=== PATIENT | male | born 1965 | race Caucasian/White ===

== ENCOUNTER 2019-07-07 15:10 | Emergency (ER) | payer OTHER, SELFPAY ==
[2019-07-07 15:11] VITALS: BP 154/105; PULSE 82; RESP 17; TEMP 36.8; O2SAT 98; BMI 26.4
--- NOTE | 2019-07-07 15:30 | ED.DCSUM_ITS ---
- ER Visit Summary Date of Service: 07/07/19 Chief Complaint: Laceration History of Present Illness: The patient is a 53 M who is right-hand dominant. He smashed his left middle finger between pieces of wood just prior to arrival. Sustained a laceration. Unsure of his tetanus status. Physical Examination: 2.5 cm laceration on his palmar side of his distal phalanx of his left middle finger. Nailbed intact. Neurovascular intact. Good range of motion. Test Results: X-rays pending Emergency Department Course and Treatment: Tetanus updated. Digital block was performed using lidocaine without epinephrine. He tolerated this well. Wound was irrigated and explored under good lighting and hemostasis. Closed with simple interrupted sutures. Follow-up with primary care for suture removal in about 10 days. Return sooner for any signs of infection. Treatment Plan: As above Disposition: Discharge Impression: 1. Left middle finger laceration 2.5 cm This note was generated with [employer] dictation software. It may contain incorrect words, spelling, and punctuation that were not noted in review of the chart prior to signing ED Disposition - Plan for ED Patient: Referrals: Care Physician,No Primary [Primary Care Provider] -
--- NOTE | 2019-07-07 15:32 | ED.DEP ---
ED Disposition - Plan for ED Patient: Instructions: LACERATION, Hand Prescriptions: Cephalexin [Keflex] 500 mg PO Q6 3 Days #12 cap Prescription Printed Referrals: Nat Jones [NON-STAFF] - 10 Day for suture removal
--- NOTE | 2019-07-07 15:36 | RAD_ITS ---
STUDY: X-RAY - LEFT HAND, ATTENTION THIRD FINGER REASON FOR EXAM: Male, 53 years old. Laceration distal finger, anterior TECHNIQUE: 3 view(s) of the finger were obtained. COMPARISON: None. FINDINGS: Normal metacarpal head. Normal metacarpophalangeal joint. Normal proximal phalanx. Normal middle phalanx. Normal distal phalanx. Normal proximal interphalangeal joint. Normal distal interphalangeal joint. There are small punctate densities along the radial side digital soft tissues at the PIP joint level. RAD/Finger(s) Min 2 Views IMPRESSION: No demonstrated fracture. Punctate foreign bodies of the distal third digit soft tissues. Electronically Signed: Jesús Wright MD (Brooks) at 15:54 EST , Service support ,
[2019-07-07] MEDS: Diphth,Pertuss(Acell),Tet Vac 0.5 ML Vial IM (15:50)
== END 2019-07-07 16:30 | disposition home or self-care (01) ==
LOC: ED 15:43
PROVIDERS: Emergency Provider Emergency Medicine
DX: S61.213A Laceration without foreign body of left middle finger without damage to nail, initial encounter (principal); W23.0XXA Caught, crushed, jammed, or pinched between moving objects, initial encounter; Y93.9 Activity, unspecified; Y92.9 Unspecified place or not applicable
CPT/HCPCS: 12001; 73140; 90471; 90715; 99283

== ENCOUNTER 2025-01-14 15:12 | Emergency (ER) | payer OTHER, SELFPAY ==
[2025-01-14 15:13] VITALS: BP 135/89; PULSE 59; RESP 18; TEMP 36.6; O2SAT 98; BMI 25.1
--- NOTE | 2025-01-14 15:20 | RAD_ITS ---
PROCEDURE: WRIST MIN 3 VIEWS; HAND MIN 3 VIEWS 01/14/2025 REASON FOR EXAM: INJURY TECHNIQUE: WRIST MIN 3 VIEWS; HAND MIN 3 VIEWS COMPARISON: None. FINDINGS: No acute fracture or dislocation. Alignment is anatomic. Preserved joint spaces. Mild soft tissue swelling and possible laceration injury at the dorsal aspect of the hand. No radiopaque foreign body. RAD/Wrist min 3 Views IMPRESSION: No acute fracture or dislocation. Reading Location: [id number]
--- NOTE | 2025-01-14 15:20 | RAD_ITS ---
PROCEDURE: WRIST MIN 3 VIEWS; HAND MIN 3 VIEWS 01/14/2025 REASON FOR EXAM: INJURY TECHNIQUE: WRIST MIN 3 VIEWS; HAND MIN 3 VIEWS COMPARISON: None. FINDINGS: No acute fracture or dislocation. Alignment is anatomic. Preserved joint spaces. Mild soft tissue swelling and possible laceration injury at the dorsal aspect of the hand. No radiopaque foreign body. RAD/Hand Min 3 Views IMPRESSION: No acute fracture or dislocation. Reading Location: [id number]
--- NOTE | 2025-01-14 15:35 | EDS_ITS ---
HPI History of Present Illness Chief Complaint: Upper Extremity Injury Detail of Chief Complaint: Laceration dorsum of right hand and unable to extend right long finger Informant: patient Occured/Mechanism Mechanism/Context: Yes blunt trauma Comment: Cut on a piece of sheet metal Onset/Context/Timing Onset: Today and Hours Context: Sudden Onset Timing: Continuous Quality of Pain: - (Presently has no pain) Location: Dorsum of the right hand Current Severity: Gone Maximum Severity: Moderate Worsened by: Initial injury Relieved by: Nothing, not applicable Associated Symptoms Associated Symptoms: Positive for Loss of Funtion (Unable to extend right long finger); Negative for Parasthesia or Weakness Narrative Narrative: Patient is a 59-year-old [id number] male. He presents with flap laceration dorsum of the right hand. His right long finger is in a flexed pos ition. He denies paresthesia, anesthesia Medicus. Tetanus is not up-to-date. He has no allergies to antibiotics. He has no other complaints. Prior similar symptoms: No Recent Illness/Hospitalization: No PFSH PFSH Medical History no medical history no medical history Home Medications ?Medication ?Instructions ?Recorded ?Last Taken ?Type cephalexin 500 mg capsule 500 mg PO 3XD #14 CAPSULES 0 01/14/25 Unknown Rx Allergy/AdvReac Type Severity Reaction Status Date / Time No Known Allergies Allergy Verified 01/14/25 15:15 Family History no significant family his Surgical History no surgical history Social History (Updated 01/14/25 @ 15:[address] Ethan Hernandez MD) household members: spouse Smoking Status: Heavy Smoker (>10/day) ROS [facility] ED Musculoskeletal Musculoskeletal: Reports other Details: Per HPI narrative Integumentary Reports other Details: Per HPI narrative Neurologic Neurologic: Denies paresthesias or weakness Hematologic/Lymphatic Hematologic/Lymphatic: Denies easy bleeding or easy bruising EXAM Physical Exam Const Vital Signs: 01/14/25 15:13 Temperature 98 F Temperature Source Oral Pulse Rate 59 L Respiratory Rate 18 Blood Pressure 135/89 H Blood Pressure Mean 104 Pulse Ox 98 Oxygen Delivery Method Room Air Positive well nourished and well developed Constitutional Narrative: Vital signs reveal slight elevation in blood pressure. General Appearance ED: well developed and NAD HEENT normocephalic and atraumatic Eyes PERRL and EOMs intact bilaterally Resp normal respiratory effort Cardio regular rate and regular rhythm Extremity Negative for normal to inspection Extremity Narrative: Patient has a splinterlike irregular margined flap type laceration dorsum of the right hand. The extensor indices, the extensor minimizer and extensor tendon to the ring finger are intact. The extensor tendon to the long finger is not. He is in the flexed position. He has no movement when asked to extend. 2 point discrimination is normal. Capillary refill is normal. There is no subungual hematoma noted of the thumb or fingers. Neuro oriented x3, CN's II-XII intact bilaterally, moves all extremities, No no focal motor deficits and no sensory deficits noted Sensorium / Orientation: alert Psych mental status grossly normal Skin Skin Narrative: Documented under the extremity portion of the physical exam. Lesions: no lesions Rashes: no rashes Trauma: Negative for no lacerations or abrasions MDM MDM MDM Narrative Medical decision making narrative: Patient presents with laceration dorsum of right hand. The extensor commonness tendon to his right long finger has been lacerated based on exam. X-rays were obtained per nurse protocol. There is no evidence of foreign body or fracture. Patient was informed if ICD to when is I will suture if possible otherwise we will refer to hand for repair this coming week. He has no antibiotic allergies. Radiography Chest X-Ray - ED: Read by ED Physician (4 view x-ray of the hand was independently turbid by me as negative there is no fracture, subluxation dislocation. There is no foreign body.) and - (Three-view x-ray of the wrist was dependently reviewed interpreted by me as negative. There is no fracture, subluxation dislocation. There is no malalignment of the carpal bones. There is no volar fat pad noted. There is some calcification of the extensor pollicis brevis noted on the lateral. 1) Procedures Other Procedures Procedure(s): Total length of laceration 6 cm. It is a flap. The skin was anesthetized with 1% lidocaine without epinephrine by local infiltration. The wound was irrigated with 250 cc of normal saline. The extensor commonness tendon to the left long finger is completely lacerated. There is also lacerations to what appears to be 2 intratendinous connections. Patient was made aware that this is more complex than I feel comfortable repairing. He was referred to hand surgeon, Dr. Rasta Balderrama, patient was placed on cephalexin. The skin was closed using 5-0 Ethilon. Simple interrupted sutures were placed to approximate the multiple edges. Patient was told why he did not have a cosmetic closure. Will have nurse address and will have nurse placed patient in a aluminum splint so his finger is in position of function. Discharge Plan Triage Chief Complaint: Upper Extremity Injury ED Provider: Ethan Hernandez Dx/Rx/DC Orders Clinical Impression: Laceration of right hand involving extensor tendon, Elevated blood-pressure reading without diagnosis of hypertension Instructions: ED Laceration, Hand: All Closures Prescriptions: New cephalexin 500 mg capsule 500 mg PO 3XD Qty: 14 0RF Primary Care Provider: Care Physician,No Primary Referrals: Rasta Balderrama MD [Med Staff - Active Staff] - As soon as possible Care Physician,No Primary [Primary Care Provider] - Activity Restrictions/Additional Instructions: 1. Keep your wound clean and dry. 2. You may change the tape on the splint every 2 days. 3. Take antibiotics until gone. 4. Contact Dr. Balderrama's office to be seen on Friday or Friday. 5. There is any concern that your wound is infected return to the emergency department. Print Language: Slovak Disposition Disposition: Home, Self Care
[2025-01-14] MEDS: Lidocaine 1% (20 ml mdv) 20 ML Vial INFILT (15:58)
[2025-01-14 16:52] VITALS: BP 135/89; PULSE 59; RESP 14; TEMP 36.6; O2SAT 98
== END 2025-01-14 17:25 | disposition home or self-care (01) ==
PROVIDERS: Emergency Provider Emergency Medicine; Referring Provider Emergency Medicine; Visit Provider Emergency Medicine
DX: S66.322A Laceration of extensor muscle, fascia and tendon of right middle finger at wrist and hand level, initial encounter (principal); W26.8XXA Contact with other sharp object(s), not elsewhere classified, initial encounter; R03.0 Elevated blood-pressure reading, without diagnosis of hypertension; F17.200 Nicotine dependence, unspecified, uncomplicated; Z23 Encounter for immunization
CPT/HCPCS: 12002; 73110; 73130; 90715; 99283

== ENCOUNTER 2025-01-18 07:25 | Day surgery (SDC) | payer OTHER, SELFPAY ==
[2025-01-18] VITALS (9 sets, daily range): BP systolic 125–165; BP diastolic 86–106; PULSE 74–82; RESP 16–20; TEMP 36.1–37; O2SAT 96–99; BMI 25.4
[2025-01-18] MEDS: Lactated Ringers 1,000 ML 15 ML IV (07:58)
--- NOTE | 2025-01-18 08:25 | HP.PCM.SX_ITS ---
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 The injury occurred when the patient's hand was caught on a sharp edge of a sheet metal frame, resulting in a deep cut. The patient reports no prior injuries to the hand and denies any previous similar incidents. The injury occurred on Friday, 14 January 2025. The patient has been evaluated by Dr. Hernandez, who noted potential tendon damage and recommended specialist consultation for further management. The patient reports difficulty with hand movement, specifically with extension, and has been advised to undergo surgical repair. The patient has a history of cigarette smoking, consuming approximately one pack per day, which may impact healing and recovery. Discussed smoking cessation ROS: - Neurological: Denies previous hand injuries or numbness - Musculoskeletal: Reports difficulty with hand extension Attestation: Documentation on this patient encounter was supported using ambient scribe technology/ voice AI technology. The patient consented to recording for the pur pose of documenting the encounter. Provider reviewed content of the generated note prior to signature. Current Encounter (DATE OF SURGERY H&P UPDATE): I saw and examined the patient this morning in pre-operative holding. We discussed risks and benefits of today's surgery and they would like to proceed. NO CHANGE in health history since last seen and evaluated. Ready to proceed with surgery. PFSH Medical History Wears glasses Alcohol use Arthritis Smoker Home Medications ?Medication ?Instructions ?Recorded ?Last Taken ?Type cephalexin 500 mg capsule 500 mg PO 3XD #14 CAPSULES 0 01/14/25 Unknown Rx Allergy/AdvReac Type Severity Reaction Status Date / Time No Known Allergies Allergy Verified 01/18/25 07:54 Surgical History Hx of surgical procedure History of vasectomy Social History household members: spouse Smoking Status: Heavy Smoker (>10/day) Vital Signs Vital Signs Vital Signs: 01/18/25 07:55 01/18/25 07:55 Temperature 98.6 F Temperature Source Temporal Pulse Rate 74 Respiratory Rate 16 Respiratory Pattern Normal Blood Pressure 165/106 H Blood Pressure Mean 125 Blood Pressure Source Monitor Blood Pressure Position Sitting Blood Pressure Location Left Arm Pulse Ox 99 Oxygen Delivery Method Room Air Weight Weight: 171 lb 15.369 oz Body Mass Index (BMI) 25.4 Physical Exam Narrative Right Upper Extremity Inspection: Full-thickness laceration status post repair on the right dorsal hand with a distally based flap of tissue that appears to be viable for the most part. There is extensor lag on the right long finger Palpation: Tenderness noted around the laceration site. Patient has a palmaris Motor: Able to bend and extend all MP, PIP, and DIP joints, except for difficulty in extending right long finger from a neutral position due to the injury. Sensory: Intact to light touch on the radial and ulnar borders. The patient reports no numbness. Vascular: Finger tips are warm and well perfused with greater than 2 second capillary refill. Assessment & Plan Assessment/Plan (1) Laceration of right hand involving extensor tendon: PLAN: Assessment and Plan The patient is a 59-year-old male with a history of cigarette smoking presenting with a hand laceration sustained during work activities. The laceration is associated with potential tendon injury, as noted by Dr. Hernandez, necessitating surgical intervention. The patient's smoking habit may adversely affect wound healing and recovery, emphasizing the need for careful postoperative management. 1. Laceration Of The Hand The patient will undergo surgical repair of the hand laceration, with potential tendon grafting if necessary (discussed right palmar's longus and patient in agreement). Postoperative care will include immobilization in a splint for three weeks, followed by hand therapy to restore function. The patient is advised to reduce cigarette smoking to enhance healing and minimize complications. 2. Cigarette Smoking The patient is encouraged to reduce cigarette consumption to improve overall health and facilitate recovery from surgery. I talked to the patient extensively about the risks of surgery, including bleeding, infection, damage to surrounding structures, poor scaring, surgical site dehiscence and wound formation, need for wound care, need for repeat operations, failure to obtain the desired result (rupture of the repair and need for subsequent reconstruction), palmaris tendon grafting with a separate incision, DVT/PE, and the risks of anesthesia including , including stroke (from low blood pressure/ischemia or clot). The benefits and alternatives of this surgery were also discussed. All of their questions were answered, and they agreed to proceed with surgery. OK for MAC local for right hand extensor tendon repair. INTERVAL H&P PLAN, DATE OF SURGERY: We will proceed with surgery today. Discussed above noted risks. Also discussed opening wound proximally and d istally as needed. Patient in agreement. Plan to proceed.
--- NOTE | 2025-01-18 08:28 | PCM.PRE.AN2 ---
ASA Classification* ASA Classification ASA Classification: 2 Assessment & Plan Anesthesia* Anesthesia Assessment Anesthesia Assessment: Discussed sedation and/or anesthesia options, risks, benefits, and alternatives with patient/parents/legal guardian/POA. Questions invited. The patient/parents/legal guardian/POA seems to understand and agrees to proceed with anesthesia plan. Reviewed the physical assessment, medical history, allergy history and patient home medications list prior to surgery/procedure/anesthetic and documented any changes. Performed airway and anesthesia risk assessments. 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 When Was Last Pacemaker Check QUESTION #4 FULL TEXT: You/Your Family Experience fever (hyperthermia) with Anesthesia Last Oral Intake Last Oral intake: Last Oral Intake NPO since 22:30 01/18/25 07:55 Meds taken in AM with sips of No 01/18/25 07:55 water? Meds patient instructed to take am of surgery PONV PONV - rapid extractor operator: PONV - rapid extractor operator Female No 01/17/25 11:21 HX of Motion Sickness No 01/17/25 11:21 HX of N/V After Surgery No 01/17/25 11:21 Non-Smoker No 01/17/25 11:21 Duration of Surgery greater Yes 01/17/25 11:21 than 60 minutes Number of Risk Factors 1 01/17/25 11:21 PONV Score Low Risk 01/17/25 11:21 Height & Weight Height & Weight: Anesthesia: Height & Weight Height 5 ft 9 in 01/18/25 07:55 Weight: 78 kg 01/18/25 07:55 Body Mass Index (BMI) 25.4 01/18/25 07:55 Respiratory Assessment Respiratory Assessment - rapid extractor operator: Respiratory Tract Infection Hx - rapid extractor operator Hx Respiratory Tract Infection No 01/17/25 11:21 STOP Sleep Apnea STOP Sleep Apnea - rapid extractor operator: STOP Sleep Apnea - rapid extractor operator Hx Hypertension No 01/17/25 11:21 Hx Sleep Apnea No 01/17/25 11:21 CPAP BIPAP Do you snore loudly (louder Yes 01/17/25 11:21 than talking or can be heard Do you often feel tired/ No 01/17/25 11:21 fatigued/ sleepy during daytime? Has anyone observed you stop No 01/17/25 11:21 breathing during sleep? STOP Results Negative 01/17/25 11:21 QUESTION #5 FULL TEXT : Do you snore loudly (louder than talking or can be heard through closed doors)? Tobacco Use History Tobacco Use History - rapid extractor operator: Tobacco Use History - rapid extractor operator Tobacco Use Smoking Status Heavy Smoker (>10/day) 01/17/25 11:21 Hx Tobacco Use Yes 01/17/25 11:21 Years Smoking Packs Smoked per Day Smoking Cessation Date was within the last 15 years Hx Smoking Cessation Date Hx Smoking Cessation Counseling Any additional information?: Yes Smoking Status: Current every day smoker (Patient smoked today.) Hematologic Medial History Hematologic Hx - rapid extractor operator: Hematologic Medical Hx - candles pourer Hx of Blood Transfusion No 01/17/25 11:21 Hx of Transfusion in last 3 No 01/17/25 11:21 Months Date of Last Transfusion (if within last 3 months) Ever experience any problems No 01/17/25 11:21 with transfusion(s)? Specify any problems Hx of Preganancy in last 3 N/A 01/17/25 11:21 Months Nurse Filling Out Transfusion VCHRISTIN 01/17/25 11:21 & Questions: Date: 01/17/25 01/17/25 11:21 Time: 11:23 01/17/25 11:21 Patient unable to answer at this time (ie. confused, unrespo /Reproduction History /Reproductive History - rapid extractor operator: /Reproductive Hx- rapid extractor operator Hx Now Gestational Age (in weeks): EDC: Hx Hx Para Hx Section SAB Active Medications Active Medications: Current Medications Generic Name Dose Route Start Last Admin Trade Name Freq PRN Reason Stop Dose Admin Cefazolin Sodium 2 gm/ Sodium 110 mls @ 200 mls/hr 01/18/25 09:00 Chloride IV 01/18/25 09:32 INTRAOP ONE Lactated Ringer's 1,000 mls @ 15 mls/hr 01/18/25 07:45 01/18/25 07:58 IV 15 mls/hr .Q48H NAIF Administration PFSH Medical History Wears glasses Alcohol use Arthritis Smoker Home Medications ?Medication ?Instructions ?Recorded ?Last Taken ?Type cephalexin 500 mg capsule 500 mg PO 3XD #14 CAPSULES 01/14/25 Unknown Rx doxycycline hyclate 100 mg capsule 100 mg PO BID 5 days #10 caps 01/18/25 Unknown Rx oxycodone 5 mg tablet 5 mg PO BID PRN pain 5 days #10 01/18/25 Unknown Rx tabs Allergy/AdvReac Type Severity Reaction Status Date / Time No Known Allergies Allergy Verified 01/18/25 07:54 Surgical History Hx of surgical procedure History of vasectomy Social History household members: spouse Smoking Status: Heavy Smoker (>10/day) Review of Systems (Anesthesia) ROS Narrative System reviewed and no additional complaints, except as documented.
--- NOTE | 2025-01-18 08:28 | PCM.PRE.AN2 ---
ASA Classification* ASA Classification ASA Classification: 2 Assessment & Plan Anesthesia* Anesthesia Assessment Anesthesia Assessment: Discussed sedation and/or anesthesia options, risks, benefits, and alternatives with patient/parents/legal guardian/POA. Questions invited. The patient/parents/legal guardian/POA seems to understand and agrees to proceed with anesthesia plan. Reviewed the physical assessment, medical history, allergy history and patient home medications list prior to surgery/procedure/anesthetic and documented any changes. Performed airway and anesthesia risk assessments. Anesthesia Type Anesthesia Type: MAC History Source History Obtained from:: Patient and Chart Anesthesia Focused Assessment* Temperature: 98.6 F Pulse Rate: 74 Blood Pressure: 165/106 Respiratory Rate: 16 Pulse Ox: 99 Oxygen Delivery Method: Room Air Airway Assessment Mouth opens: >3 cm Mallampati Score: II Teeth Condition: Caps/Crowns (Bonded on 9&) Neck Range of motion (ROM): Full ROM Labs Anesthesia Preop lab: CBC CHEMISTRY COAG Pre-Assessment Diagnosis/Proposed Procedure Planned Operative Procedure(s): REPAIR RIGHT HAND EXTENSOR TENDON Anesthesia History Anesthesia History - line technician: Anesthesia History - line technician Hx Hospitalization No 01/17/25 11:21 Any Problems With Anesthesia No 01/17/25 11:21 Cholinesterase deficiency No 01/17/25 11:21 You/Your Family Experience No 01/17/25 11:21 fever (hyperthermia) with Relationship Recent Exposure to Contagious No 01/18/25 07:55 Disease Does patient have nerve No 01/17/25 11:21 stimulator Patient instructed to have device shut off --Does patient have Pacemaker No 01/18/25 07:55 or ICD? When Was Last Pacemaker Check QUESTION #4 FULL TEXT: You/Your Family Experience fever (hyperthermia) with Anesthesia Last Oral Intake Last Oral intake: Last Oral Intake NPO since 22:30 01/18/25 07:55 Meds taken in AM with sips of No 01/18/25 07:55 water? Meds patient instructed to take am of surgery PONV PONV - line technician: PONV - line technician Female No 01/17/25 11:21 HX of Motion Sickness No 01/17/25 11:21 HX of N/V After Surgery No 01/17/25 11:21 Non-Smoker No 01/17/25 11:21 Duration of Surgery greater Yes 01/17/25 11:21 than 60 minutes Number of Risk Factors 1 01/17/25 11:21 PONV Score Low Risk 01/17/25 11:21 Height & Weight Height & Weight: Anesthesia: Height & Weight Height 5 ft 9 in 01/18/25 07:55 Weight: 78 kg 01/18/25 07:55 Body Mass Index (BMI) 25.4 01/18/25 07:55 Respiratory Assessment Respiratory Assessment - line technician: Respiratory Tract Infection Hx - line technician Hx Respiratory Tract Infection No 01/17/25 11:21 STOP Sleep Apnea STOP Sleep Apnea - line technician: STOP Sleep Apnea - line technician Hx Hypertension No 01/17/25 11:21 Hx Sleep Apnea No 01/17/25 11:21 CPAP BIPAP Do you snore loudly (louder Yes 01/17/25 11:21 than talking or can be heard Do you often feel tired/ No 01/17/25 11:21 fatigued/ sleepy during daytime? Has anyone observed you stop No 01/17/25 11:21 breathing during sleep? STOP Results Negative 01/17/25 11:21 QUESTION #5 FULL TEXT : Do you snore loudly (louder than talking or can be heard through closed doors)? 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 Specify any problems Hx of Preganancy in last 3 N/A 01/17/25 11:21 Months Nurse Filling Out Transfusion VCHRISTIN 01/17/25 11:21 & Questions: Date: 01/17/25 01/17/25 11:21 Time: 11:23 01/17/25 11:21 Patient unable to answer at this time (ie. confused, unrespo /Reproduction History /Reproductive History - line technician: /Reproductive Hx- line technician Hx Now Gestational Age (in weeks): EDC: Hx Hx Para Hx Section SAB Active Medications Active Medications: Current Medications Generic Name Dose Route Start Last Admin Trade Name Freq PRN Reason Stop Dose Admin Cefazolin Sodium 2 gm/ Sodium 110 mls @ 200 mls/hr 01/18/25 09:00 Chloride IV 01/18/25 09:32 INTRAOP ONE Lactated Ringer's 1,000 mls @ 15 mls/hr 01/18/25 07:45 01/18/25 07:58 IV 15 mls/hr .Q48H NAIF Administration PFSH Medical History Wears glasses Alcohol use Arthritis Smoker Home Medications ?Medication ?Instructions ?Recorded ?Last Taken ?Type cephalexin 500 mg capsule 500 mg PO 3XD #14 CAPSULES 01/14/25 Unknown Rx doxycycline hyclate 100 mg capsule 100 mg PO BID 5 days #10 caps 01/18/25 Unknown Rx oxycodone 5 mg tablet 5 mg PO BID PRN pain 5 days #10 01/18/25 Unknown Rx tabs Allergy/AdvReac Type Severity Reaction Status Date / Time No Known Allergies Allergy Verified 01/18/25 07:54 Surgical History Hx of surgical procedure History of vasectomy Social History household members: spouse Smoking Status: Heavy Smoker (>10/day) Review of Systems (Anesthesia) ROS Narrative System reviewed and no additional complaints, except as documented.
[2025-01-18] MEDS: Lidocaine 1% /Epi 1:100 (20ml) 20 ML Vial (09:45)
--- NOTE | 2025-01-18 10:06 | PCM.POST.ANE ---
Anesthesia: Postop Eval I Current Vital Signs Temperature: 97.5 F Pulse Rate: 82 Blood Pressure: 125/95 Respiratory Rate: 20 Pulse Ox: 98 Oxygen Delivery Method: Room Air Assessment Airway patent: Yes Spontaneous unlabored respirations: Yes Mental status: Awake and Calm nausea: No Vomiting: No Anesthesia Complication: No Fluid Hydration Crystalloid volume administer (ml): 600 Total IV fluid infused: 600 Progress Note Anesthesia document: Postop Eval 1 completed: Yes
--- NOTE | 2025-01-18 11:30 | PCM.OPRPT ---
Operative Report (Standard) Operative Information Date of Procedure: 01/18/25 Pre-Operative Diagnosis: Right long finger extensor digitorum communis (EDC) to long finger laceration, Zone 6 Post-Operative Diagnosis: Same Surgery/Procedure Performed: 1) Right long finger EDC repair, zone 6 (06493) certified anesthesiologist assistant: Yes Psychiatric Security Nurse: Wesly Luis Tasks completed by first dyer: Retracting Type of Anesthesia: Local MAC (25 cc of 50-50 mixture of quarter percent Marcaine and 1% lidocaine with 1-200,000 epinephrine) RN Documented Start/Stop Times: Operation Date: 01/18/25 09:00 Case Time Into Pre-Op 01/18/25 07:39 Out of Pre-Op 01/18/25 08:48 Anesthesia Start 01/18/25 08:51 Into Room 01/18/25 08:51 Procedure Start 01/18/25 09:11 Procedure End 01/18/25 09:54 Anesthesia End 01/18/25 09:59 Out of Room 01/18/25 09:59 Into Recovery 01/18/25 10:00 Into Phase II Recovery 01/18/25 10:25 Out of Recovery 01/18/25 10:25 Out of Phase II 01/18/25 10:51 Procedure Start Time: 09:11 Procedure Stop Time: 09:54 Select all DRAINS/GRAFTS/IMPLANTS that apply: None Estimated Blood Loss: Minimal Specimen collected: No Description of surgery: Indications: Patient is a 59-year-old male with a dorsal right hand laceration. Presents today for repair. I discussed the risks, benefits, and alternatives to the procedure and he agreed to proceed. Procedure Details: Patient was correct identified in preoperative holding and marked. He was taken back to the operating room where he was administered sedation and local anesthesia as noted above. He was prepped and draped in sterile fashion and a timeout was performed. Sutures were removed. The wound was then opened and irrigated with copious amounts normal saline and Irrisept. The tourniquet was insufflated to 250 mmHg after the Esmarch was used. The proximal portion of the EDC was in the wound bed but the distal portion was retracted. A distal extension of the laceration was then made with a 15 blade scalpel and careful dissection was taken down on the dorsum of the hand to find the distal portion of the EDC tendon. Care was taken to prevent injury to sensory nerve. The edges were found and approximated with 2 modified Maddox 3-0 FiberWire sutures for a 4 core strand repair, followed by a 5-0 Prolene suture epitendinous repair. The cascade of the hand was then checked and was normal. The wound was further irrigated and the tourniquet was let down. Hemostasis obtained with bipolar electrocautery. The wound was then closed with 4-0 Monocryl deep dermal sutures followed by 4-0 nylon vertical mattress sutures. Patient tolerated the procedure well. He was awakened and taken the PACU in stable condition after a volar blocking plaster splint was placed (fingers in extension). Postoperative plan: Follow-up in 1 week for wound check and for change into a cast. Plan for 3 weeks of immobilization in extension followed by initiation of extensor tendon protocol with the occupational therapist. Surgical Findings: Complete laceration of the right long finger EDC tendon Complications Complications: No
--- NOTE | 2025-01-18 19:06 | POSTOPAN2_ITS ---
Anesthesia Postop Eval I Sum Postop Eval Completion status Anesthesia document: Postop Eval 1 completed: Yes Anesthesia Postop Eval I Summary Anesthesia Postop Eval I Summary: Anesthesia Postop Eval I: Assessment Summary Airway patent Yes 01/18/25 10:07 [email or web address] Spontaneous unlabored Yes 01/18/25 10:07 [email or web address] [email or web address] respirations Mental status Awake,Calm 01/18/25 10:07 [email or web address] nausea No 01/18/25 10:07 [email or web address] [email or web address] Vomiting No 01/18/25 10:07 [email or web address] [email or web address] Anesthesia Postop Eval I: Fluid Summary Crystalloid volume administer 600 01/18/25 10:07 [email or web address] (ml) Colloids volume administered ( ml) Blood Product volume administered (ml) Total IV fluid infused 600 01/18/25 10:07 [email or web address] Anesthesia Postop Eval I: Summary Notes Anesthesia Complication No 01/18/25 10:07 [email or web address] [email or web address] Anesthesia Complication Comment: Post-operative progress note Anesthesia: Postop Eval II Evaluation Mental status: Awake and Calm Pain Level: 1 nausea: No Vomiting: No Complications Anesthesia Complication: No
--- NOTE | 2025-01-18 19:06 | POSTOPAN2_ITS ---
Anesthesia Postop Eval I Sum Postop Eval Completion status Anesthesia document: Postop Eval 1 completed: Yes Anesthesia Postop Eval I Summary Anesthesia Postop Eval I Summary: Anesthesia Postop Eval I: Assessment Summary Airway patent Yes 01/18/25 10:07 NURSE [email or web address] Spontaneous unlabored Yes 01/18/25 10:07 NURSE [email or web address] respirations Mental status Awake,Calm 01/18/25 10:07 NURSE [email or web address] nausea No 01/18/25 10:07 NURSE EXAMINER.[email or web address] Vomiting No 01/18/25 10:07 NURSE EXAMINER.[email or web address] Anesthesia Postop Eval I: Fluid Summary Crystalloid volume administer 600 01/18/25 10:07 NURSE [email or web address] (ml) Colloids volume administered ( ml) Blood Product volume administered (ml) Total IV fluid infused 600 01/18/25 10:07 NURSE [email or web address] Anesthesia Postop Eval I: Summary Notes Anesthesia Complication No 01/18/25 10:07 NURSE [email or web address] Anesthesia Complication Comment: Post-operative progress note Anesthesia: Postop Eval II Evaluation Mental status: Awake and Calm Pain Level: 1 nausea: No Vomiting: No Complications Anesthesia Complication: No
--- NOTE | 2025-01-18 19:06 | PCM.POSTANE2 ---
Anesthesia Postop Eval I Sum Postop Eval Completion status Anesthesia document: Postop Eval 1 completed: Yes Anesthesia Postop Eval I Summary Anesthesia Postop Eval I Summary: Anesthesia Postop Eval I: Assessment Summary Airway patent Yes 01/18/25 10:07 HIGH RISK [email or web address] Spontaneous unlabored Yes 01/18/25 10:07 HIGH RISK OB.[email or web address] respirations Mental status Awake,Calm 01/18/25 10:07 HIGH RISK [email or web address] nausea No 01/18/25 10:07 HIGH RISK OB.[email or web address] Vomiting No 01/18/25 10:07 HIGH RISK [email or web address] Anesthesia Postop Eval I: Fluid Summary Crystalloid volume administer 600 01/18/25 10:07 HIGH RISK [email or web address] (ml) Colloids volume administered ( ml) Blood Product volume administered (ml) Total IV fluid infused 600 01/18/25 10:07 HIGH RISK [email or web address] Anesthesia Postop Eval I: Summary Notes Anesthesia Complication No 01/18/25 10:07 HIGH RISK [email or web address] Anesthesia Complication Comment: Post-operative progress note Anesthesia: Postop Eval II Evaluation Mental status: Awake and Calm Pain Level: 1 nausea: No Vomiting: No Complications Anesthesia Complication: No
--- NOTE | 2025-01-18 19:06 | PCM.POSTANE2 ---
Anesthesia Postop Eval I Sum Postop Eval Completion status Anesthesia document: Postop Eval 1 completed: Yes Anesthesia Postop Eval I Summary Anesthesia Postop Eval I Summary: Anesthesia Postop Eval I: Assessment Summary Airway patent Yes 01/18/25 10:07 BLANKET [email or web address] Spontaneous unlabored Yes 01/18/25 10:07 BLANKET [email or web address] respirations Mental status Awake,Calm 01/18/25 10:07 [email or web address] [email or web address] nausea No 01/18/25 10:07 BLANKET [email or web address] Vomiting No 01/18/25 10:07 BLANKET [email or web address] Anesthesia Postop Eval I: Fluid Summary Crystalloid volume administer 600 01/18/25 10:07 BLANKET [email or web address] (ml) Colloids volume administered ( ml) Blood Product volume administered (ml) Total IV fluid infused 600 01/18/25 10:07 BLANKET [email or web address] Anesthesia Postop Eval I: Summary Notes Anesthesia Complication No 01/18/25 10:07 BLANKET [email or web address] Anesthesia Complication Comment: Post-operative progress note Anesthesia: Postop Eval II Evaluation Mental status: Awake and Calm Pain Level: 1 nausea: No Vomiting: No Complications Anesthesia Complication: No
== END 2025-01-18 10:51 | disposition home or self-care (01) ==
LOC: SDC 07:25 → AC 07:27
PROVIDERS: Visit Provider Surgery Plastic and Reconstructive Surgery
PROC: (CPT 26410; principal; 2025-01-18 08:45)
DX: S66.122A Laceration of flexor muscle, fascia and tendon of right middle finger at wrist and hand level, initial encounter (principal); W26.8XXA Contact with other sharp object(s), not elsewhere classified, initial encounter; Y93.89 Activity, other specified; Y99.0 Civilian activity done for income or pay; F17.210 Nicotine dependence, cigarettes, uncomplicated
CPT/HCPCS: 26410; 01810; J2405